=== PATIENT | male | born 1950 | race Caucasian/White ===

== ENCOUNTER 2020-01-03 05:46 | Day surgery (SDC) | payer MEDICARE, MEDICAID ==
[2020-01-02 11:48] LABS: BASOPHILS # (AUTO) 0.1 X10'3 (0-0.2); BASOPHILS % (AUTO) 0.8 % (0-1); EOSINOPHILS # (AUTO) 0.2 X10'3 (0-0.9); EOSINOPHILS % (AUTO) 3.2 % (0-6); HEMATOCRIT 39.5 % (42.0-52.0); HEMOGLOBIN 13.1 g/dl (14.0-17.9); LYMPHOCYTES # (AUTO) 1.3 X10'3 (1.1-4.8); LYMPHOCYTES % (AUTO) 19.8 % (21-51); MEAN CORPUSCULAR HGB CONC 33.1 g/dL (33.0-36.5); MEAN CORPUSCULAR VOLUME 84.6 FL (78-98); MONOCYTES # (AUTO) 0.5 X10'3 (0-0.9); MONOCYTES % (AUTO) 8.4 % (2-12); NEUTROPHILS # (AUTO) 4.4 X10'3 (1.8-7.7); NEUTROPHILS % (AUTO) 67.8 % (42-75); PLATELET COUNT 222 X10'3 (140-440); RED BLOOD COUNT 4.67 X10'6 (4.70-6.10); RED CELL DISTRIBUTION WIDTH 16.2 % (11.5-14.5); WHITE BLOOD COUNT 6.5 X10'3 (4.5-11.0)
[2020-01-02 12:02] LABS: ALBUMIN 3.8 G/DL (3.4-5.0); ANION GAP 6 (8-16); BLOOD UREA NITROGEN 13 MG/DL (7-18); BUN/CREATININE RATIO 11.2 (5.4-32.0); CALCIUM 10.4 MG/DL (8.5-10.1); CHLORIDE 108 MMOL/L (99-107); CREATININE 1.16 MG/DL (0.60-1.10); GLUCOSE 118 MG/DL (70-104); PARTIAL THROMBOPLASTIN TIME 24 SECONDS (22-32); POTASSIUM 3.9 MMOL/L (3.5-5.1); SODIUM 142 MMOL/L (135-145); TOTAL CARBON DIOXIDE 28.5 MMOL/L (24-32); eGFR 63 ML/MIN
[2020-01-03] VITALS (11 sets, daily range): BP systolic 106–129; BP diastolic 67–82
[~2020-01-03] VITALS: Ht 182.9 cm; Wt 117.4 kg
[2020-01-03] MEDS ORDERED: diphenhydrAMINE 25mg capsule PO PRN (06:10)
[2020-01-03] MEDS ORDERED: LORazepam 0.5 MG tablet PO PRN (06:10)
[2020-01-03] MEDS ORDERED: normal saline 1,000 ML IV SCH (06:10)
[2020-01-03] MEDS ORDERED: LIDOcaine/PRILOcaine 5gm cream TP ONE (06:20)
[2020-01-03] MEDS ORDERED: vascepa PO (06:34)
[2020-01-03] MEDS ORDERED: RIVA20TA PO (06:35)
[2020-01-03] MEDS ORDERED: CHOL100025 PO (06:36)
[2020-01-03] MEDS ORDERED: PANT40TA4 PO (06:37)
[2020-01-03] MEDS ORDERED: FURO-150 PO (06:37)
[2020-01-03] MEDS ORDERED: CARV-50 PO (06:38)
[2020-01-03] MEDS ORDERED: POTA10TA10 PO (06:39)
[2020-01-03] MEDS ORDERED: DOCU-21 PO (06:39)
[2020-01-03] MEDS ORDERED: DOCU-150 PO (06:42)
[2020-01-03] MEDS ORDERED: ASPI-611 PO (06:43)
[2020-01-03] MEDS ORDERED: GABA-530 PO (06:44)
[2020-01-03] MEDS ORDERED: ALBU18HF2 INH (06:45)
[2020-01-03] MEDS ORDERED: UMEC1DIS INH (06:45)
[2020-01-03] MEDS ORDERED: DILT120C52 PO (06:52)
[2020-01-03] MEDS ORDERED: nitroGLYCERIN-Tridil 50MG/D5W 250 ML IV ONE (07:47)
[2020-01-03] MEDS ORDERED: iohexol 350MG/ML 100ml bottle IV ONE (07:47)
[2020-01-03] MEDS ORDERED: heparin 1,000unit/ml 10ml vial 10 ML ONE (07:47)
[2020-01-03] MEDS ORDERED: hydrocortisone sod succ/PF 100mg/2ml inj. ONE (07:47)
[2020-01-03] MEDS ORDERED: iohexol 350 MG/ML 50ML vial IV ONE (07:47)
[2020-01-03] MEDS ORDERED: LIDOcaine 1% (10mg/ml)w/preservative injection 20ml MDV ONE (07:47)
[2020-01-03] MEDS ORDERED: diphenhydrAMINE 50 mg/ml inj ONE (07:47)
[2020-01-03] MEDS ORDERED: verapamil 2.5 mg/ml inj IV ONE (07:47)
[2020-01-03] MEDS ORDERED: famotidine/PF 10 mg/ml inj IV ONE (07:48)
[2020-01-03] MEDS ORDERED: fentaNYL/PF 50MCG/1 ML 2ML syringe ONE (07:48)
[2020-01-03] MEDS ORDERED: midazolam 2 mg/2 ml injection ONE (07:48)
[2020-01-03 09:25] LABS: ISTAT HGB ART 11.2 g/dl (14.0-18.0); ISTAT Hct ART 33 %PCV (42-52); ISTAT Hct MIX 33 %PCV (42-52); ISTAT O2 SATURATION ARTERIAL 95 % (95-98); ISTAT O2 SATURATION MIX VENOUS 63 % (60-80); ISTAT SOURCE ART; ISTAT SOURCE MIX
--- NOTE | 2020-01-03 13:00 | NUR ---
VASC BAND REMOVED, NO OOZING FROM SITE, CLEANSED WITH STERILE GAUZE AND NS, GENTLY. DRSG OF STERILE 2X2 AND TEGADERM APPLIED, FOLDED 4X4 AND COBAN APPLIED FOR EXTRA SUPPORT AND COMFORT, PT TOTALLY AWARE MAY REMOVE TOP 4X4'S AND COBAN IF UNCOMFORTABLE, PT STATES UNDERSTANDING. Addendum: 01/03/20 at 1649 by Marley Mckeon RN Amended: Links added.
== END 2020-01-03 15:00 | disposition home or self-care (01) ==
LOC: SSTAY O 05:46
PROVIDERS: ATTEND Internal Medicine Cardiovascular Disease
DX: R94.39 Abnormal result of other cardiovascular function study (principal); I25.10 Atherosclerotic heart disease of native coronary artery without angina pectoris; I48.20 Chronic atrial fibrillation, unspecified; E78.5 Hyperlipidemia, unspecified; I11.0 Hypertensive heart disease with heart failure; I50.9 Heart failure, unspecified; J44.9 Chronic obstructive pulmonary disease, unspecified; I42.0 Dilated cardiomyopathy; E66.3 Overweight; Z68.34 Body mass index [BMI] 34.0-34.9, adult; Z95.0 Presence of cardiac pacemaker; Z95.5 Presence of coronary angioplasty implant and graft; Z79.01 Long term (current) use of anticoagulants; Z79.899 Other long term (current) drug therapy; Z87.11 Personal history of peptic ulcer disease; Z85.05 Personal history of malignant neoplasm of liver; Z87.891 Personal history of nicotine dependence; Z88.8 Allergy status to other drugs, medicaments and biological substances
CPT/HCPCS: 36415; 80048; 82803; 85014; 85025; 85610; 85730; 93005; 93460; 99152; 99153; C1769; C1894; J1200; J1644; J1720; J2001; J2250; J3010; J3490; J7030; Q0163; Q9967; 93567; A4620; A5120; A6258